=== PATIENT | male | born 1945 | race Hispanic/Latino ===

== ENCOUNTER 2016-07-25 09:51 | Outpatient (CLI) | payer MEDICARE ==
[2016-07-25 10:49] LABS: #Eosinphils 0.1 thou/uL (0.0-0.7); #Lymphocytes 1.7 thou/uL (1.20-3.40); #Monocytes 0.5 thou/uL (0.11-0.59); #Neutrophils 4.4 thou/uL (1.40-6.50); %Basophils 0.4 % (0.0-1.0); %Eosinophils 0.9 % (0.0-10.0); %Monocytes 7.1 % (0.0-10.0); Hematocrit 40.2 % (42.0-52.0); Mean Platelet Volume 6.7 fL (7.4-10.4); White Blood Cell (WBC) Count 6.7 thou/uL (4.8-10.8)
[2016-07-25 11:09] LABS: ALT (SGPT) 22 U/L (0-55); AST (SGOT) 18 U/L (5-34); Alkaline Phosphatase 49 U/L (40-150); Anion Gap 13 mmol/L (10-20); BUN (Urea Nitrogen) 20 mg/dL (8.4-25.7); Bilirubin, Total 0.5 mg/dL (0.2-1.2); Calc. Creatinine Clearance 0 mL/min (70-130); Calcium 9.6 mg/dL (7.8-10.44); Carbon Dioxide 26 mmol/L (23-31); Chloride 107 mmol/L (98-107); Estimated GFR-MDRD Greater than 90; Globulin 2.7 g/dL (2.4-3.5); LDL Cholesterol, Calculated 55 mg/dL; Protein, Total 7.2 g/dL (5.8-8.1)
[2016-07-25 12:13] LABS: Hemoglobin A1c 6.6 % (4.0-6.0)
== END 2016-07-25 09:52 | disposition home or self-care (01) ==
LOC: HPCALD 09:51
PROVIDERS: ATTEND Family Medicine
DX: E11.9 Type 2 diabetes mellitus without complications (principal); I10 Essential (primary) hypertension; N52.9 Male erectile dysfunction, unspecified
CPT/HCPCS: 36415; 80053; 80061; 83036; 84403; 85025

== ENCOUNTER 2016-10-24 17:25 | Emergency (ER) | payer MEDICARE ==
[2016-10-24 18:08] LABS: Bilirubin Negative (Negative); Blood, Urine Negative (Negative); Clarity Clear (Clear); Glucose, Urine (Dipstick) 100 mg/dL (Negative); Leukocyte Negative (Negative); Nitrite Negative (Negative); Protein, Urine (Dipstick) Negative (Neg-Trace); Specific Gravity, Urine 1.025 (1.005-1.030); Urobilinogen 0.2 mg/dL (0.2-1.0); pH, Urine 5.5 (5.0-9.0)
--- NOTE | 2016-10-24 18:33 | RAD ---
TWO VIEW CHEST: 10/24/16 HISTORY: Injury with left rib pain. The lungs are clear. No infiltrate or effusion. The heart size is upper normal. Aortic calcification . The visualized bony thorax appears intact. There are degenerative changes in the thoracic spine. IMPRESSION: No acute abnormality identified. POS: H
== END 2016-10-24 18:33 | disposition home or self-care (01) ==
LOC: BURERS 17:25
DX: S80.212A Abrasion, left knee, initial encounter (principal); R07.89 Other chest pain; E11.9 Type 2 diabetes mellitus without complications; I10 Essential (primary) hypertension; E78.5 Hyperlipidemia, unspecified; F17.210 Nicotine dependence, cigarettes, uncomplicated; V89.2XXA Person injured in unspecified motor-vehicle accident, traffic, initial encounter
CPT/HCPCS: 71020; 81003

== ENCOUNTER 2018-04-16 07:28 | Emergency (ER) | payer MEDICARE ==
[2018-04-16] MEDS ORDERED: Lidocaine 1% 20 ML MDV ONE (07:43)
[2018-04-16] MEDS ORDERED: Bacitracin Zinc 1 Packet ONE (08:57)
--- NOTE | 2018-04-16 12:45 | RAD ---
LEFT HAND THREE VIEWS: Date: 04-16-18 FINDINGS: No acute fracture was appreciated. Degenerative changes are seen throughout the hand, particularly in the IP joints. There is some calcification of the triangular fibrocartilage indicating there may be one of various deposition diseases at play. Arterial calcifications are evident. The carpal relations hip seem normal. There is a thin sliver on the radial aspect of the first MCP joint. I believe this i s more likely old than new. Correlate with exact site of clinical pain. IMPRESSION: Degenerative changes but no acute traumatic finding. POS: [facility]
== END 2018-04-16 09:00 | disposition home or self-care (01) ==
LOC: BURERS 07:28
DX: S61.213A Laceration without foreign body of left middle finger without damage to nail, initial encounter (principal); S61.215A Laceration without foreign body of left ring finger without damage to nail, initial encounter; S61.217A Laceration without foreign body of left little finger without damage to nail, initial encounter; I10 Essential (primary) hypertension; E11.9 Type 2 diabetes mellitus without complications; E78.5 Hyperlipidemia, unspecified; I25.10 Atherosclerotic heart disease of native coronary artery without angina pectoris; F17.210 Nicotine dependence, cigarettes, uncomplicated; Z79.899 Other long term (current) drug therapy; Z79.84 Long term (current) use of oral hypoglycemic drugs; W26.8XXA Contact with other sharp object(s), not elsewhere classified, initial encounter
CPT/HCPCS: 12001; J2001

== ENCOUNTER 2020-10-26 09:15 | Emergency (ER) | payer MEDICARE ==
[2020-10-26] MEDS ORDERED: Lidocaine 1% PF 5 ML VIAL ONE (09:43)
== END 2020-10-26 10:17 | disposition home or self-care (01) ==
LOC: BURERS 09:15
DX: S60.112A Contusion of left thumb with damage to nail, initial encounter (principal); X58.XXXA Exposure to other specified factors, initial encounter
CPT/HCPCS: 11740

== ENCOUNTER 2021-11-19 10:38 | Outpatient (CLI) | payer MEDICARE | END 2021-11-19 10:39 | disposition home or self-care (01) | LOC: BURRAD 10:38 | PROVIDERS: ATTEND Family Medicine | DX: M79.601 Pain in right arm (principal); M19.011 Primary osteoarthritis, right shoulder ==